=== PATIENT | female | born 1960 | race Hispanic/Latino ===

== ENCOUNTER 2018-02-21 06:06 | Day surgery (SDC) | payer OTHER ==
[2018-02-20 14:30] VITALS: BP 139/75
[2018-02-20 14:42] LABS: BASOPHILS % (AUTO) 0.9 % (0.0-5.0); EOSINOPHILS % (AUTO) 2.5 % (0.0-8.0); HEMATOCRIT 40.4 % (36-48); LYMPHOCYTES % (AUTO) 27.7 % (21.0-51.0); MEAN CORPUSCULAR HEMOGLOBIN 28.4 pg (27.0-33.0); MEAN CORPUSCULAR HGB CONC 33.8 g/dL (32.0-36.0); MEAN CORPUSCULAR VOLUME 84.1 fL (79-99); MONOCYTES % (AUTO) 5.9 % (3.0-13.0); NUCLEATED RED BLOOD CELLS 0.1 % (0.0-0.19); PLATELET COUNT (AUTO) 202 K/uL (130-400); RED CELL DISTRIBUTION WIDTH 12.7 % (11.0-15.5); WHITE BLOOD COUNT (AUTO) 8.7 K/uL (4.8-10.8)
[2018-02-20 14:43] LABS: APPEARANCE,URINE Clear (CLEAR); BILIRUBIN,URINE Negative (NEGATIVE); COLOR,URINE Yellow (YELLOW); GLUCOSE, URINE (UA) Negative (NEGATIVE); KETONES,URINE Negative (NEGATIVE); LEUKOCYTE ESTERASE ,URINE Negative (NEGATIVE); NITRATE,URINE Negative (NEGATIVE); OCCULT BLOOD,URINE Negative (NEGATIVE); PROTEIN,URINE Negative (NEGATIVE); UROBILINOGEN,URINE 0.2 mg/dL (0.2-1.0)
[2018-02-20 14:56] LABS: ALBUMIN 3.7 g/dL (3.5-5.0); BILIRUBIN,DIRECT 0.1 mg/dL (0.0-0.3); BILIRUBIN,TOTAL 0.6 mg/dL (0.2-1.0); TOTAL PROTEIN, SERUM 8.3 g/dL (6.0-8.3)
[2018-02-21] VITALS (16 sets, daily range): BP systolic 131–161; BP diastolic 66–80
[~2018-02-21] VITALS: Ht 151.1 cm; Wt 88.5 kg
[~2018-02-21 06:06] MED LIST: CEFAZOLIN SODIUM 1 GM VIAL IVP SCH
[2018-02-21] MEDS ORDERED: GLYCOPYRROLATE 0.2 MG/ML 5 ML VIAL ONE (06:26)
[2018-02-21] MEDS ORDERED: LIDOCAINE PF 2% 5ML ABBOJECT ONE (06:26)
[2018-02-21] MEDS ORDERED: DEXAMETHASONE SOD PHOSPHATE 10MG/ML 1ML VIAL ONE (06:26)
[2018-02-21] MEDS ORDERED: NEOSTIGMINE 5MG/5ML SYR IV ONE ×2 (06:26→08:24)
[2018-02-21] MEDS ORDERED: PROPOFOL 10 MG/ML 20ML VIAL IV ONE (06:26)
[2018-02-21] MEDS ORDERED: SUCCINYLCHOLINE 200MG/10ML SYR ONE ×2 (06:26→08:23)
[2018-02-21] MEDS ORDERED: MIDAZOLAM HCL 1 MG/ML 2ML VIAL ONE (06:26)
[2018-02-21] MEDS ORDERED: FENTANYL CITRATE PF 50 MCG/1 ML 2ML VIAL ONE ×2 (06:27→08:20)
[2018-02-21] MEDS ORDERED: HEPARIN SODIUM 1000UNIT/ML 10ML VIAL ONE (06:27)
[2018-02-21] MEDS ORDERED: ROPIVACAINE 0.5% 5MG/ML 30ML IJ ONE (06:30)
[2018-02-21] MEDS ORDERED: TRAM50TA4 PO (06:40)
[2018-02-21] MEDS ORDERED: ESOM40CA PO (06:40)
[2018-02-21] MEDS ORDERED: AEC81 PO (06:40)
[2018-02-21] MEDS ORDERED: IBUP-2070 PO (06:40)
[2018-02-21] MEDS ORDERED: LACTATED RINGERS 1000ML 1,000 ML IV ONE (06:50)
[2018-02-21] MEDS ORDERED: ROCURONIUM BROMIDE 10MG/1ML 5ML VL ONE ×2 (08:23)
[2018-02-21] MEDS ORDERED: METOCLOPRAMIDE 10 MG/2 ML VIAL ONE (08:23)
[2018-02-21] MEDS ORDERED: TRAMADOL HCL 50 MG TABLET ONE (10:53)
== END 2018-02-21 11:36 | disposition home or self-care (01) ==
LOC: DAH 06:06
PROVIDERS: ATTEND Surgery
DX: K80.00 Calculus of gallbladder with acute cholecystitis without obstruction (principal); K66.8 Other specified disorders of peritoneum; E66.9 Obesity, unspecified; Z79.899 Other long term (current) drug therapy; Z79.82 Long term (current) use of aspirin
CPT/HCPCS: 36415; 47562; 80076; 81003; 85025; 88304; 88305; 88311; A4450; A4600; C1769 ×4; J0330 ×2; J1100; J1644; J2001; J2250; J2704; J2710 ×2; J2765; J2795; J3010 ×2; J3490 ×3; J7030; J7120

== ENCOUNTER → 2021-03-16 | Outpatient (CLI) | payer OTHER ==
[~2021-03-16] MED LIST changes: +AEC81 PO; -CEFAZOLIN SODIUM 1 GM VIAL IVP SCH; +ESOM40CA PO; +IBUP-2070 PO; +TRAM50TA4 PO
== END | disposition home or self-care (01) ==
LOC: SHCH 12:25
PROVIDERS: ATTEND Internal Medicine Cardiovascular Disease
DX: R01.1 Cardiac murmur, unspecified (principal)
CPT/HCPCS: 93306; 93356